=== PATIENT | male | born 1940 | race Caucasian/White ===

== ENCOUNTER 2017-08-16 11:03 | Observation (INO) | payer MEDICARE, OTHER ==
[~2017-08-16] VITALS: Ht 182.9 cm; Wt 81.8 kg
[~2017-08-16 11:03] MED LIST: ASPI-1265 PO; ATEN-169 PO; ATOR40TA PO; CEFP100T7 PO; CETI10TA18 PO; CYCL-1 PO; DONE10TA6 PO; FLUT16SP26 BOTHNARES; LACT1CAP26 PO; LISI-600 PO; LORA1TAB PO; MAGN400C PO; METF500T7 PO; ONDA4TAB12 PO; WEL100T PO
[2017-08-16 11:52] LABS: BASOPHILS % (AUTO) 0.3 % (0-1); EOSINOPHILS # (AUTO) 0.3 X10'3 (0-0.9); EOSINOPHILS % (AUTO) 3.8 % (0-6); HEMOGLOBIN 13.8 g/dl (14.0-17.9); LYMPHOCYTES # (AUTO) 2.1 X10'3 (1.1-4.8); LYMPHOCYTES % (AUTO) 31.7 % (21-51); MEAN CORPUSCULAR HEMOGLOBIN 30.8 PG (27.0-31.0); MEAN CORPUSCULAR HGB CONC 34.4 % (33.0-36.5); MEAN CORPUSCULAR VOLUME 89.8 FL (78-98); MEAN PLATELET VOLUME 10.4 FL (7.4-10.4); MONOCYTES # (AUTO) 0.4 X10'3 (0-0.9); MONOCYTES % (AUTO) 6.1 % (2-12); NEUTROPHILS # (AUTO) 3.8 X10'3 (1.8-7.7); NEUTROPHILS % (AUTO) 58.1 % (42-75); PLATELET COUNT 134 X10'3 (140-440); RED BLOOD COUNT 4.46 X10'6 (4.70-6.10); RED CELL DISTRIBUTION WIDTH 14.4 % (11.5-14.5); WHITE BLOOD COUNT 6.6 X10'3 (4.5-11.0)
[2017-08-16 12:08] LABS: ALANINE AMINOTRANSFERASE 11 U/L (12-78); ALBUMIN 3.3 G/DL (3.4-5.0); ALBUMIN/GLOBULIN RATIO 1.1 (1.1-1.5); ALKALINE PHOSPHATASE 83 IU/L (46-116); ANION GAP 12 (8-16); ASPARTATE AMINO TRANSFERASE 14 U/L (10-37); BILIRUBIN,TOTAL 0.4 MG/DL (0.1-1.0); BLOOD UREA NITROGEN 14 MG/DL (7-18); BUN/CREATININE RATIO 13.6 (5.4-32.0); CALCIUM 8.3 MG/DL (8.5-10.1); CHLORIDE 105 MMOL/L (99-107); CREATININE 1.03 MG/DL (0.60-1.10); GLUCOSE 133 MG/DL (70-104); POTASSIUM 3.8 MMOL/L (3.5-5.1); SODIUM 141 MMOL/L (135-145); TOTAL PROTEIN 6.4 G/DL (6.4-8.2); eGFR 70 ML/MIN
[2017-08-16 12:14] LABS: MAGNESIUM 1.7 MG/DL (1.5-2.4)
[2017-08-16] MEDS ORDERED: IBUP-1984 PO (13:22)
[2017-08-16] MEDS ORDERED: AMLO-93 PO (13:22)
[2017-08-16] MEDS ORDERED: DONE10TA6 PO (13:22)
[2017-08-16] MEDS ORDERED: CARB1TAB23 PO (13:22)
[2017-08-16] MEDS ORDERED: DIVA500T7 PO (13:22)
[2017-08-16] MEDS ORDERED: magnesium/D5W IVPB 50 ML IV PRN (13:40)
[2017-08-16] MEDS ORDERED: HYDROcodone/acetaminophen 10/325mg tab PO PRN (13:40)
[2017-08-16] MEDS ORDERED: bisacodyl 10mg suppository rectal RC PRN (13:40)
[2017-08-16] MEDS ORDERED: potassium Cl 40MEQ/NS 500ml 500 ML IV PRN ×2 (13:40)
[2017-08-16] MEDS ORDERED: potassium Cl 20 mEq SR tablet PO PRN ×2 (13:40)
[2017-08-16] MEDS ORDERED: ondansetron/PF 4mg/2ml inj IV PRN (13:40)
[2017-08-16] MEDS ORDERED: mag hydrox/Alum hydrox/simeth 30ml oral suspension PO PRN (13:40)
[2017-08-16] MEDS ORDERED: magnesium 4gm in 100ml NS 100 ML IV PRN (13:40)
[2017-08-16] MEDS ORDERED: magnesium Cl slow-release 64mg tablet PO PRN (13:40)
[2017-08-16] MEDS ORDERED: HYDROcodone/acetaminophen 5mg/325mg tablet PO PRN (13:40)
[2017-08-16] MEDS ORDERED: morphine 4 MG/ML inj SYRINge IV PRN ×2 (13:40)
[2017-08-16] MEDS ORDERED: magnesium hydroxide 30ml (MOM) UD suspension PO PRN (13:40)
[2017-08-16] MEDS ORDERED: acetaminophen 325mg tablet PO PRN (13:40)
[2017-08-16] MEDS ORDERED: regadenoson 0.4mg/5ml syringe IV ONE (13:45)
[2017-08-16] MEDS ORDERED: CAFFEINE CITRATE 60 MG/3 ML injection vial IV PRN (13:45)
[2017-08-16] MEDS ORDERED: metoprolol tartrate 1mg/ml inj IV PRN (13:45)
[2017-08-16] MEDS: LIDOcaine 5% patch TP SCH (13:45)
[2017-08-16] MEDS ORDERED: nitroGLYCERIN 0.4mg SUBLingual tab SL PRN ×2 (13:45)
[2017-08-16] MEDS: aspirin 81mg tablet.DR PO SCH (13:45)
[2017-08-16] MEDS ORDERED: dextrose 50%-water 50ml dispensing syringe IV PRN ×2 (13:55)
[2017-08-16] MEDS ORDERED: insulin Lispro (HumaLOG) vial - multi-dose SQ SCH (13:55)
[2017-08-16] MEDS ORDERED: glucagon, human recombinant 1mg kit SUBCUT PRN (13:55)
[2017-08-16] MEDS ORDERED: MESSAGE TO PHARMACY PO ONE (13:55)
[2017-08-16] MEDS ORDERED: dextrose ORAL solution 15 GM/59 ML bottle PO PRN ×2 (13:55)
[2017-08-16] MEDS ORDERED: OLAN5TAB26 PO (14:59)
[2017-08-16] MEDS ORDERED: INSU100I25 SQ (14:59)
[2017-08-16] MEDS ORDERED: DIVA-81 PO (14:59)
[2017-08-16] MEDS ORDERED: OLANZapine 2.5MG tablet PO PRN (15:00)
[2017-08-16] MEDS: pantoprazole 40 MG vial IV SCH (16:03)
[2017-08-16 16:45] VITALS: BP 159/73
[2017-08-16] MEDS: NICOTINE 4 MG PO PRN (18:54)
[2017-08-16 19:00] VITALS: BP 156/62
[2017-08-16] MEDS ORDERED: donepezil 5mg tablet PO SCH (21:00)
[2017-08-16] MEDS ORDERED: insulin glargine (Lantus) pen - multi-dose SQ SCH ×2 (21:00)
[2017-08-16] MEDS ORDERED: divalproex sod 250mg ER (24-hour) tablet PO SCH (21:00)
[2017-08-16] MEDS: buPROPion 75mg tablet PO SCH (21:08)
[2017-08-16] MEDS: docusate sod 100mg capsule PO SCH (21:08)
[2017-08-16] MEDS: heparin, porcine 5000 units/ml vial SQ SCH (21:09)
[2017-08-16] MEDS: carbidoba-levodopa 25-100mg tablet PO SCH (21:10)
[2017-08-16] MEDS ORDERED: Melatonin 3mg tablet PO PRN (22:30)
[2017-08-16 23:00] VITALS: BP 141/64
[2017-08-17] VITALS (9 sets, daily range): BP systolic 122–207; BP diastolic 55–91
[2017-08-17 06:34] LABS: ALANINE AMINOTRANSFERASE 16 U/L (12-78); ALKALINE PHOSPHATASE 58 IU/L (46-116); ANION GAP 8 (8-16); ASPARTATE AMINO TRANSFERASE 10 U/L (10-37); BILIRUBIN,TOTAL 0.5 MG/DL (0.1-1.0); BLOOD UREA NITROGEN 14 MG/DL (7-18); BUN/CREATININE RATIO 14.1 (5.4-32.0); CALCIUM 8.4 MG/DL (8.5-10.1); CHLORIDE 107 MMOL/L (99-107); CHOL/HDL RATIO 3.8 (0.00-4.99); CHOLESTEROL 79 MG/DL (0-200); CREATININE 0.99 MG/DL (0.60-1.10); GLUCOSE 123 MG/DL (70-104); HDL CHOLESTEROL 21 MG/DL (35-60); LDL CHOLESTEROL 39 MG/DL (50-100); MAGNESIUM 1.6 MG/DL (1.5-2.4); POTASSIUM 3.9 MMOL/L (3.5-5.1); SODIUM 140 MMOL/L (135-145); TOTAL CARBON DIOXIDE 24.7 MMOL/L (24-32); TOTAL PROTEIN 5.9 G/DL (6.4-8.2); TRIGLYCERIDES 186 MG/DL (20-135); eGFR 74 ML/MIN
[2017-08-17] MEDS: NICOTINE 4 MG PO PRN ×2 (07:36→11:52)
[2017-08-17] MEDS: buPROPion 75mg tablet PO SCH (07:36)
[2017-08-17] MEDS: pantoprazole 40 MG vial IV SCH (07:37)
[2017-08-17] MEDS: carbidoba-levodopa 25-100mg tablet PO SCH ×2 (07:37→13:04)
[2017-08-17] MEDS: aspirin 81mg tablet.DR PO SCH (07:37)
[2017-08-17] MEDS: heparin, porcine 5000 units/ml vial SQ SCH (07:43)
[2017-08-17] MEDS: LIDOcaine 5% patch TP SCH (07:43)
[2017-08-17] MEDS: docusate sod 100mg capsule PO SCH (07:43)
[2017-08-17] MEDS ORDERED: lisinopril 20mg tablet PO SCH (08:00)
[2017-08-17] MEDS ORDERED: atorvastatin 10mg tablet PO SCH (08:00)
[2017-08-17] MEDS ORDERED: atenolol 50mg tablet PO SCH (08:00)
[2017-08-17] MEDS ORDERED: K and/or MAG REPLACEMENT MC SCH (08:00)
[2017-08-17] MEDS ORDERED: amLODIPine 5mg tablet PO SCH (08:00)
[2017-08-17] MEDS ORDERED: regadenoson 0.4mg/5ml syringe IV ONE (08:59)
[2017-08-17] MEDS ORDERED: CAFFEINE CITRATE 60 MG/3 ML injection vial IV ONE (08:59)
[2017-08-17] MEDS ORDERED: ondansetron/PF 4mg/2ml inj ONE (09:19)
[2017-08-17] MEDS ORDERED: LIDO700A47 TP (12:11)
== END 2017-08-17 13:55 | disposition home or self-care (01) ==
LOC: ER 11:04 → ED HOLD 13:38 → PCU 3S 16:42
PROVIDERS: ADMIT Internal Medicine; ATTEND Internal Medicine
DX: M94.0 Chondrocostal junction syndrome [Tietze] (principal); F03.90 Unspecified dementia, unspecified severity, without behavioral disturbance, psychotic disturbance, mood disturbance, and anxiety; F31.9 Bipolar disorder, unspecified; E11.9 Type 2 diabetes mellitus without complications; E78.00 Pure hypercholesterolemia, unspecified; I10 Essential (primary) hypertension; G20 Parkinson's disease; I25.10 Atherosclerotic heart disease of native coronary artery without angina pectoris; I25.2 Old myocardial infarction; Z98.61 Coronary angioplasty status; Z85.51 Personal history of malignant neoplasm of bladder
CPT/HCPCS: 36415; 71045; 78452; 80053; 80061; 82948; 83036; 83735; 83880; 84484; 85025; 87070; 93005; 93017; 93306; 96372; 96374; 96375; 96376; 99285; A9500; C9113; G0378; J1644; J1815; J2405; J7030

== ENCOUNTER 2018-02-17 17:32 | Inpatient (IN) | payer MEDICARE, OTHER | END 2018-02-28 19:31 | LOC: ER 17:32 → ED HOLD 02-18 09:05 → ORTHO 4S 02-18 10:45 | DX: L03.116 Cellulitis of left lower limb (principal); G92 Toxic encephalopathy; L03.115 Cellulitis of right lower limb; G20 Parkinson's disease; E11.42 Type 2 diabetes mellitus with diabetic polyneuropathy; G40.909 Epilepsy, unspecified, not intractable, without status epilepticus ==